=== PATIENT | female | born 1945 | race Caucasian/White ===

== ENCOUNTER → 2016-08-01 | Outpatient (CLI) | payer MEDICARE ==
[2016-08-01 12:12] LABS: HEMOGLOBIN 11.9 gm/dl (12.3-15.3); RED BLOOD COUNT 3.99 M/UL (4.00-5.10); WHITE BLOOD COUNT 9.1 K/UL (4.5-11.0)
[2016-08-01 12:27] LABS: BUN/CREATININE RATIO 35 (0-10)
== END ==
LOC: LBRF 11:37
PROVIDERS: Obstetrics & Gynecology Gynecology
DX: C55 Malignant neoplasm of uterus, part unspecified (principal)
CPT/HCPCS: 80053; 85025

== ENCOUNTER 2021-12-03 17:15 | Emergency (ER) | payer OTHER ==
[2021-12-03 21:01] LABS: HEMOGLOBIN 14.5 gm/dl (12.3-15.3); RED BLOOD COUNT 4.85 M/UL (4.00-5.10); WHITE BLOOD COUNT 15.3 K/UL (4.5-11.0)
[2021-12-03 21:21] LABS: BUN/CREATININE RATIO 19 (0-10)
== END 2021-12-04 00:04 | disposition home or self-care (01) ==
LOC: ER1 17:15
PROVIDERS: Emergency Medicine
DX: S16.1XXA Strain of muscle, fascia and tendon at neck level, initial encounter (principal); S39.92XA Unspecified injury of lower back, initial encounter; S00.03XA Contusion of scalp, initial encounter; S60.012A Contusion of left thumb without damage to nail, initial encounter; K86.9 Disease of pancreas, unspecified; I10 Essential (primary) hypertension; V49.40XA Driver injured in collision with unspecified motor vehicles in traffic accident, initial encounter; Y92.410 Unspecified street and highway as the place of occurrence of the external cause
CPT/HCPCS: 70450; 72125; 73502; 73552; 80053; 83690; 85025; 99284; Q9967